=== PATIENT | female | born 1985 | race Caucasian/White ===

== ENCOUNTER 2020-02-25 10:51 | Observation (INO) | payer BC, SELFPAY ==
--- NOTE | ~2020-02-25 | US_ITS ---
EXAMINATION: US OB limited w BPP DATE: 02/25/2020 12:12 INDICATION: Hypertension. Third trimester. TECHNIQUE: Real-time pelvic ultrasound was performed. COMPARISON: None. FINDINGS: There is a single living fetus in vertex presentation. The placenta is anterior. heart rate is 152 beats per minute (bpm). The amniotic fluid index is 14.6 cm, which is normal. Biophysical profile performed by the technologist: breathing (30 sec sustained breathing in 30 minutes): 2 out of 2 movement (3 gross body movements in 30 minutes): 2 out of 2 tone (one episode of slujfcl-vyufjwrwe-ibpsuqx limb movement): 2 out of 2 Amniotic fluid pocket (2 cm): 2 out of 2 Total score: 8 out of 8 IMPRESSION: 1. Single living fetus in vertex presentation. 2. Biophysical profile 8 out of 8. Reviewed, dictated and finalized at location A. L PLATE PRINTER
[2020-02-25 10:51] VITALS: BMI 34.8
[2020-02-25 11:46] VITALS: BP 104/63; PULSE 75
--- NOTE | 2020-02-25 13:06 | OBADM ---
This patient, Jennifer Hoover, admitted to the OB room [facility] for observation. Patient/family oriented to hospital policies and general routines including ID bracelet, bed and alarms, visiting hours, pain management, procedures, bathroom and other care routines, personal items, smoking policy, room service/diet, and visiting hours. Patient/Family are encouraged to report perceived risks to care and to ask questions if they do not understand what they are told or what they should do.
--- NOTE | 2020-03-16 08:07 | PM.OBTRLD ---
OB - Triage/Final Diagnosis Final Diagnosis (1) heart rate/rhythm abnormality affecting management of mother: Code(s): O36.8390 - Maternal care for abnormalities of the heart rate or rhythm, unspecified trimester, not applicable or unspecified Status: Acute
== END 2020-02-25 13:27 | disposition home or self-care (01) ==
PROVIDERS: Admitting Provider Obstetrics & Gynecology; Visit Provider Obstetrics & Gynecology
DX: O36.8390 Maternal care for abnormalities of the fetal heart rate or rhythm, unspecified trimester, not applicable or unspecified (principal); Z3A.00 Weeks of gestation of pregnancy not specified
CPT/HCPCS: 76815; 76819; G0378; G0379

== ENCOUNTER 2020-03-24 06:56 | Inpatient (IN) | payer BC, SELFPAY ==
[2020-03-24] VITALS (147 sets, daily range): BP systolic 98–143; BP diastolic 45–111; PULSE 71–135; TEMP 36.6–38; O2SAT 93–100; BMI 34.7
[2020-03-24] MEDS: LACTATED RINGERS 1,000 ML 125 ML IV CONT ×2 (07:41→12:12)
[2020-03-24] MEDS: AMPICILLIN 2 GM/NS 100 ML 2 GM/100 ML BAG IVPB (07:42)
[2020-03-24 08:02] LABS: Basophils Percent Auto 0.3 % (0.2-1.2); Eosinophils Absolute Auto 0.4 K/mm3 (0-0.3); Eosinophils Percent Auto 2.6 % (0-4.4); Hematocrit 33.9 % (37.0-47.0); Hemoglobin 11.3 g/dL (12.0-15.0); Immature Granulocyte Absolute 0.08 K/mm3 (0.00-0.031); Immature Granulocyte Percent A 0.6 % (0-0.5); Lymphocytes Absolute Auto 2.07 K/mm3 (0.9-3.2); Lymphocytes Percent Auto 15.5 % (18.3-44.2); Mean Corpuscular HGB Conc 33.3 g/dl (32-36); Mean Corpuscular Hemoglobin 28.2 pg (26-34); Mean Corpuscular Volume 84.5 fl (80-100); Mean Platelet Volume 10.1 fl (7.4-10.4); Monocytes Absolute Auto 0.8 K/mm3 (0.1-0.6); Monocytes Percent Auto 6.1 % (2.6-8.5); Neutrophils Percent Auto 74.9 % (45.5-73.1); Platelet Count Result 368 k/mm3 (150-375); Red Blood Count 4.01 M/mm3 (4.2-5.4); Red Cell Distribution Width 13.9 % (11.5-14.5); White Blood Count 13.4 K/mm3 (4.5-10.0)
--- NOTE | 2020-03-24 08:28 | WPDOBADMIT ---
Obstetrics - Admit Note Admission Note: 34 y/o @ 39 weeks here for AROM induction of labor. record reviewed. No pertinent additions to the history and/or any subsequent changes in the physical findings that are not consistent with the expected course of the were found. Additions to the history and/or subsequent changes in the physical findings follow. None.
--- NOTE | 2020-03-24 08:28 | PM.IMHP ---
H&P: HPI History of Present Illness Date/Time: 03/24/20 08:28 Chief Complaint: Term Narrative: Jennifer Hoover is a 34 year old female here for elective induction by AROM. History of section 7 years ago for failure to descend. That baby was 9lb7oz. Current efw 8lbs 1 week ago and pt feels this baby is smaller than her previous baby. Review of Systems Review of Systems: All systems reviewed & are unremarkable except as noted in HPI and below PMFSH Family History Family History Other Diabetes mellitus Social History Social History Smoking status: Never smoker Additional smoking assessment comments: S.O. smokes. RN states no smoking c infant,wash hands, & change clothes Alcohol intake: never Substance use: never Gender identity (if verbalized by the patient): Female Spiritual care concerns: No Meds Home Medications and Allergies Home Medications Medication Instructions Recorded Confirmed Type ferrous sulfate 28 mg PO DAILY 02/25/20 03/19/20 History xwchpsha-fmu-Xi-FA 1 tablet PO DAILY 02/25/20 03/19/20 History Allergies Allergy/AdvReac Type Severity Reaction Status Date / Time No Known Allergies Allergy Mild Verified 12/28/09 15:28 Vital Signs Vital Signs - 24 hr 03/24/20 07:31 03/24/20 08:01 Pulse Rate 98 83 Blood Pressure 129/80 129/77 Exam Narrative: Exam Narrative: Gravid uterus. Rare contractions. FHR catetory 1 Cervix 3/40/-2 AROM moderate amount of clear odorless fluid Const: General: no acute distress Neck: Neck: supple and no JVD Resp: Effort & Inspection: normal respiratory effort Auscultation: clear to auscultation bilaterally Cardio: Rate: regular rate Rhythm: regular rhythm GI: GI Palp: Yes Soft to palpation (Gravid) Neuro: General: gait normal Speech: normal speech Extrem: General: normal to inspection Right upper extremity: normal to inspection Left upper extremity: normal to inspection Right lower extremity: normal to inspection Left lower extremity: normal to inspection Psych: Mental Status: mental status grossly normal Affect: normal affect H&P: Results Labs Labs: Short CBC 03/24/20 Range/Units 07:39 WBC 13.4 H (4.5-10.0) K/mm3 Hgb 11.3 L (12.0-15.0) g/dL Hct 33.9 L (37.0-47.0) % Plt Count 368 (150-375) k/mm3 Assessment and Plan Additional Plan Planned TOLAC. I have discussed risks vs benefits in great detail. This discussion included risk of uterine rupture which could be life threatening for her and baby. Pt would like to proceed with tolac. Pt planning epidural for pain management.
[2020-03-24 09:10] LABS: Rapid Plasma Reagin Non-Reactive (NonReactive)
--- NOTE | 2020-03-24 09:31 | WPDANESEPP ---
Anes - Eval Pre Procedure Procedure: Labor Epidural Date/Time: 03/24/20 09:31 Surgeon: Yimi Pre Op Diagnosis: Induction of labor Patient Data Age: 34 Gender: F Height: 1.68 m Weight: 97.8 kg Last Vital Signs Temp 36.7 C 03/24/20 08:00 Pulse 84 03/24/20 09:04 BP 123/75 03/24/20 09:04 Allergies Allergy/AdvReac Type Severity Reaction Status Date / Time No Known Allergies Allergy Mild Verified 12/28/09 15:28 Home Medications Medication Instructions Recorded Confirmed Type ferrous sulfate 28 mg PO DAILY 02/25/20 03/19/20 History dpzjjrah-ond-Ig-FA 1 tablet PO DAILY 02/25/20 03/19/20 History Laboratory Tests 03/24/20 03/24/20 03/24/20 07:39 07:39 07:39 WBC 13.4 K/mm3 H K/mm3 (4.5-10.0) RBC 4.01 M/mm3 L M/mm3 (4.2-5.4) Hgb 11.3 g/dL L g/dL (12.0-15.0) Hct 33.9 % L % (37.0-47.0) MCV 84.5 fl fl (80-100) MCH 28.2 pg pg (26-34) MCHC 33.3 g/dl g/dl (32-36) RDW 13.9 % % (11.5-14.5) Plt Count 368 k/mm3 k/mm3 (150-375) MPV 10.1 fl fl (7.4-10.4) Immature Gran % (Auto) 0.6 % H % (0-0.5) Neut % (Auto) 74.9 % H % (45.5-73.1) Lymph % (Auto) 15.5 % L % (18.3-44.2) [place] % (Auto) 6.1 % % (2.6-8.5) Eos % (Auto) 2.6 % % (0-4.4) Baso % (Auto) 0.3 % % (0.2-1.2) Lymph # (Auto) 2.07 K/mm3 K/mm3 (0.9-3.2) [place] # (Auto) 0.8 K/mm3 H K/mm3 (0.1-0.6) Eos # (Auto) 0.4 K/mm3 H K/mm3 (0-0.3) Baso # (Auto) 0.0 K/mm3 K/mm3 (0.0-0.1) Abs Immat Gran (auto) 0.08 K/mm3 H K/mm3 (0.00-0.031) Absolute Neuts (auto) 10.0 K/mm3 H K/mm3 (1.3-6.7) Absolute Nucleated RBC 0.0 K/mm3 K/mm3 (0.0-0.012) Nucleated RBC % 0.0 % % (0.0-0.2) RPR Non-reactive (NonReactive) Blood Type O Positive Antibody Screen Negative Patient hx anesthesia problems: none Family hx anesthesia problems: none PMFSH Family History Family History Other Diabetes mellitus Social History Social History Smoking status: Never smoker Additional smoking assessment comments: S.O. smokes. RN states no smoking c infant,wash hands, & change clothes Alcohol intake: never Substance use: never Gender identity (if verbalized by the patient): Female Spiritual care concerns: No Exam Day of Procedure 03/24/20 09:31 Patient weight: obese Heart: regular rate and rhythm Lungs: normal air movement Airway: Mallampati scale class II Neurological: alert and oriented
[2020-03-24] MEDS: AMPICILLIN 1 GM/NS 50 ML 1 GM/50 ML BAG IVPB ×3 (11:02→21:28)
[2020-03-24] MEDS: OXYTOCIN 30 UNITS/NS 500 ML 30 UNITS/500 ML BAG IV CONT (12:12)
[2020-03-24] MEDS: ONDANSETRON INJ 4 MG/2 ML VIAL IV PUSH (22:11)
[2020-03-25] VITALS (14 sets, daily range): BP systolic 68–139; BP diastolic 50–89; PULSE 82–133; RESP 16–18; TEMP 36.3–37.7; O2SAT 97
--- NOTE | 2020-03-25 00:30 | PM.OBPRVD ---
OB - Delivery Note Procedure Delivery date: 03/25/20 events: Previous Intrapartal events: None Induction method: AROM Delivery monitor: external FHT, external uterine and internal uterine Route of delivery: Episiotomy description: None Laceration Description: Perineal - 1st Degree Quantitative Blood Loss (ml): 116 Anesthesia type: Epidural [place] Baby Date of : 03/25/20 Time of : 23:47 Weeks of gestation at delivery: 39 Infant gender: Female Weight (pounds): 8 Weight (ounces): 2 presentation: vertex position: Right Occiput Anterior Placenta delivery description: Spontaneous cord vessel description: 3 Vessels, Nuchal Cord, Loose and Reduced score one minute: 8 score five minutes: 9
[2020-03-25] MEDS: OXYTOCIN 30 UNITS/NS 500 ML 30 UNITS/500 ML BAG 125 UNITS IV CONT (00:44)
--- NOTE | 2020-03-25 07:27 | WPDANLDPN2 ---
Anes-Prog Note L&D Date/Time: 03/25/20 07:27 Comfortable throughout: labor and delivery Neuraxial method: epidural Epidural/Spinal procedure site: clean & non-tender Neuro status: Neuro function grossly intact. Cardiovascular status: normal Respiratory status: normal Airway patency: baseline Mental status: baseline Post-Op hydration status: normal Vital Signs: Last Vital Signs Temp 36.7 C 03/25/20 03:15 Pulse 90 03/25/20 03:15 Resp 16 03/25/20 03:15 BP 108/59 L 03/25/20 03:15 Pulse Ox 97 03/25/20 03:15 Pain score (VAS): 0/10. Patient resting in bed at time of assessment, appears comfortable. Support person at bedside. I/O: Intake & Output 03/24/20 03/24/20 03/25/20 15:59 23:59 07:59 Intake Total 6010 631 2569 Balance 6854 249 0738 Post-procedural complaints: none Patient feedback: Patient satisfied with anesthetic care.
--- NOTE | 2020-03-25 07:50 | P.PNOB_ITS ---
OB - PN: Subj Subjective Date/time seen: 03/25/20 07:50 Patient comments: no complaints baby status: doing well [place] feeding status: exclusively breast feeding OB - PN: Obj Data Labs CBC & Chem 7: 03/24/20 07:39 Labs: Laboratory Results - last 24 hr 03/24/20 03/24/20 03/24/20 07:39 07:39 07:39 WBC 13.4 H RBC 4.01 L Hgb 11.3 L Hct 33.9 L MCV 84.5 MCH 28.2 MCHC 33.3 RDW 13.9 Plt Count 368 MPV 10.1 Immature Gran % (Auto) 0.6 H Neut % (Auto) 74.9 H Lymph % (Auto) 15.5 L [place] % (Auto) 6.1 Eos % (Auto) 2.6 Baso % (Auto) 0.3 Lymph # (Auto) 2.07 [place] # (Auto) 0.8 H Eos # (Auto) 0.4 H Baso # (Auto) 0.0 Abs Immat Gran (auto) 0.08 H Absolute Neuts (auto) 10.0 H Absolute Nucleated RBC 0.0 Nucleated RBC % 0.0 RPR Non-reactive Blood Type O Positive Antibody Screen Negative OB - PN A/P Plan day: 1 Plan: routine care Time Spent With Patient Time: Total time spent is greater than 50% in coordination of care (as document ed) at patient's floor/unit and/or counseling patient: Review of Systems Review of Systems: All systems reviewed & are unremarkable except as noted in HPI and below Exam Const: General: cooperative Orientation/consciousness: patient oriented x3 Limitations: no limitations
[2020-03-25] MEDS: DOCUSATE SODIUM 100 MG CAPSULE PO (09:27)
--- NOTE | 2020-03-25 15:54 | PC.NURSE ---
1445 Breast feeding note; nurse came after mother called for nurse to assess breast feeding; baby latched in cross-cradle position, maintaining latch and demonstrating rhythmic sucking. Mother reported a little nipple discomfort; latch appeared deep, but nurse taught mother how to gently adjust to deeper latch, and mother reported more comfortable nursing. Reviewed frequency and duration of feedings, waking infant if needed and keeping infant nursing as vigorously as she will nurse. fob at bedside and engaged in teaching. Reviewed use of feeding log for monitoring feedings and output per day of age. Mother attentive, and voiced understanding of information shared.
[2020-03-26 05:50] LABS: Hematocrit 29.2 % (37.0-47.0); Hemoglobin 9.6 g/dL (12.0-15.0)
[2020-03-26] MEDS: POLYSACCHARIDE IRON COMPLEX 150 MG CAPSULE PO (07:48)
[2020-03-26] MEDS: DOCUSATE SODIUM 100 MG CAPSULE PO (07:48)
[2020-03-26 08:00] VITALS: BP 118/73; PULSE 77; RESP 16; TEMP 36.8; O2SAT 98
--- NOTE | 2020-03-26 11:03 | PM.OBPNVD ---
OB - PN: Subj Subjective Date/time seen: 03/26/20 11:03 Patient comments: no complaints, pain well controlled and tolerating diet OB - PN: Obj Data Labs CBC & Chem 7: 03/26/20 05:43 Labs: Laboratory Results - last 24 hr 03/26/20 05:43 Hgb 9.6 L Hct 29.2 L OB - PN A/P Plan day: 2 Plan: routine care and discharge home Time Spent With Patient Time: Total time spent is greater than 50% in coordination of care (as documented) at patient's floor/unit and/or counseling patient: Exam Const: General: comfortable and no acute distress Resp: Effort & Inspection: normal respiratory effort Auscultation: no rales, no rhonchi and no wheezes Cardio: Rate: regular rate Heart sounds: no click, no murmurs and no rubs GI: GI Palp: Yes Soft to palpation and No Tenderness to palpation present (GI) Auscultation: normal bowel sounds Extrem: General: normal to inspection, no pedal edema and no calf tenderness
[2020-03-28 11:06] VITALS: BP 120/69; PULSE 84; RESP 20; TEMP 36.6; O2SAT 99
--- NOTE | 2020-04-17 09:27 | PM.OBDSVD ---
DS: Admitting Diagnosis Admitting Diagnosis Admitting Diagnosis: term DS: Discharge Diagnosis Discharge Diagnosis (1) Previous delivery affecting : Code(s): O34.219 - Maternal care for unspecified type scar from previous delivery Status: Acute (2) Hx successful (vaginal after ), currently : Code(s): O34.219 - Maternal care for unspecified type scar from previous delivery Status: Acute OB - DS: Summary OB Procedures : Ultrasound OB Procedures Intrapartum: Spontaneous Vag Delivery OB Procedures: : None Peripartum Data Infant Delivery Method: Natural Vaginal Laceration Description: Perineal - 1st Degree Episiotomy description: None Time Spent with Patient Time attestation: Total time spent providing and/or coordinating discharge services: Discharge Plan Discharge Attending physician on discharge: Carolyn Couch Consulting providers: Carolyn Couch ; Taya Garcia Discharging Clinician: Carolyn Couch Patient Disposition: Home, Self-Care Activity: pelvic rest Diet: as tolerated Discharge Instructions: Education: Mom and Baby Guide Given to: Mother Follow-Up: Call your delivering provider's office for an appointment to be seen in: Call for appointment Mom and baby should come to the [facility] for the follow-up appointment. Appointment Date/Time: Saturday, March 28, 2020 at 11:00 a.m. What to expect at your follow-up visit: Blood Pressure Check Physical Assessment Call [phone] if you are unable to keep your appointment time. BREAST CARE: * Wear a snug supportive bra. * For engorgement discomfort: Breast Feeding: * Apply warm moist washcloths * Express milk as needed to relieve engorgement * Wear loose clothing * For sore nipples: * Identify correct latch-on * Apply warm moist washcloths before and after nursing * Air dry nipples after nursing * May apply Lansinoh cream to nipples EPISIOTOMY/PERINEAL CARE: * Until bleeding stops, use your cherie bottle after urinating * Change your pad frequently throughout the day * You may take sitz baths several times a day (fill your bathtub with warm water and soak for 20 minutes.) Do NOT bathe in the water * No tub baths until seen by your physician - You may shower ACTIVITY: * Rest as much as possible. * Do not exercise or lift anything heavier than your baby (such as laundry or other children.) * Avoid stairs or driving as much as possible. * Do not put anything into the vagina. No douching, tampons, or sexual activity until seen by physician. NOTIFY PHYSICIAN IF YOU HAVE ANY QUESTIONS OR IF ANY OF THE FOLLOWING SYMPTOMS OCCUR: * If your perineum becomes red, swollen, or more painful than what you have experienced in the hospital. * If your vaginal bleeding becomes foul smelling. * If your vaginal bleeding becomes more heavy than a period or if your bleeding changes from pink to bright red. However, you may pass an occasional walnut-sized clot once or twice for the first week . * If you experience a sharp, shooting pain in you calves. * If you discover a hard, reddened area on your breast or if you experience flu-like symptoms. DIET: * Eat regular, well-balanced meals. * Drink plenty of fluids daily. If , drink to thirst. Stand Alone Forms: General Discharge Information Follow-up/Referrals: Carolyn Couch CNM [Certified Nurse It Generalist] - Call for Appointment Discharge Medications: Continued lopvackc-evu-Ak-FA 1 mg Tablet 1 tablet PO DAILY RF: 0 ferrous sulfate 28 mg iron Tablet 28 mg PO DAILY RF: 0 Date of admission: 03/24/20 06:56 Primary Care Provider: PHYSICIAN,JANITORIAL MAINTENANCE WORKER Admitting Provider: Sheeba Geller Attending physician on admission: Sheeba Geller
== END 2020-03-26 15:05 | disposition home or self-care (01) | DRG 807 ==
LOC: ANHLDR 03-25 00:37 → ANHOB2 03-25 03:13
PROVIDERS: Advanced Practice Midwife; Admitting Provider Obstetrics & Gynecology; Visit Provider Obstetrics & Gynecology
DX: O34.211 Maternal care for low transverse scar from previous cesarean delivery (principal); Z37.0 Single live birth; Z3A.39 39 weeks gestation of pregnancy; O36.8330 Maternal care for abnormalities of the fetal heart rate or rhythm, third trimester, not applicable or unspecified; O99.824 Streptococcus B carrier state complicating childbirth; O69.81X0 Labor and delivery complicated by cord around neck, without compression, not applicable or unspecified; O99.214 Obesity complicating childbirth; E66.9 Obesity, unspecified; O70.0 First degree perineal laceration during delivery
CPT/HCPCS: 36415; 85014; 85018; 85025; 86592; 86850; 86900; 86901; A9270; J0131; J0290; J2405; J2590; J2795; J7120

== ENCOUNTER 2022-06-07 06:58 | Outpatient (CLI) | payer OTHER, SELFPAY ==
--- NOTE | ~2022-06-07 | MR_ITS ---
MRI of the left knee Clinical history: Pain Technique: Coronal proton density and proton density-weighted images, sagittal proton-density and T2 fat-sat images, and axial proton-density fat-saturated images were acquired. Findings: Anterior and posterior cruciate ligaments are intact. Medial collateral ligament and the la teral collateral ligament complex are intact. Popliteus tendon is intact. Medial and lateral menisci are intact, without evidence of tear. Articular cartilage is relatively well preserved throughout the knee. Bone marrow signals are unremar kable. Extensor mechanism is intact. Moderate joint effusion present with moderate to large Shipman's cyst. Impression: Moderate joint effusion with moderate to large Shipman's cyst. Precise etiology of the effusion is uncl ear. No significant articular abnormality evident otherwise. Reviewed, dictated and finalized at location M. Impression: Moderate joint effusion with moderate to large Shipman's cyst. Precise etiology o f the effusion is unclear. No significant articular abnormality evident otherwise.
== END 2022-06-07 06:59 ==
PROVIDERS: PCP Family Medicine Sports Medicine; Visit Provider Family Medicine Sports Medicine
DX: M23.92 Unspecified internal derangement of left knee (principal); M71.22 Synovial cyst of popliteal space [Baker], left knee; M25.462 Effusion, left knee
CPT/HCPCS: 73721